=== PATIENT | female | born 1985 | race Caucasian/White ===

== ENCOUNTER 2016-08-12 19:05 | Emergency (ER) | payer OTHER ==
[2016-08-12 20:59] LABS: PH,URINE 6.5 (5.0-8.0); URINE BILIRUBIN NEGATIVE (NEGATIVE); URINE BLOOD NEGATIVE (NEGATIVE); URINE GLUCOSE (UA) NEGATIVE (NEGATIVE); URINE LEUKOCYTE ESTERASE 1+ (NEGATIVE); URINE NITRITE NEGATIVE (NEGATIVE); URINE PROTEIN NEGATIVE (NEGATIVE); URINE UROBILINOGEN NORMAL (0-1 mg/dl)
[2016-08-12 21:00] LABS: URINE APPEARANCE CLEAR; URINE COLOR YELLOW
[2016-08-12 21:09] LABS: URINE RBC 0 /hpf
[2016-08-12 21:10] LABS: URINE BACTERIA 2+
--- NOTE | 2016-08-12 22:27 | US ---
Name: MEME JONES Exam: Venous ultrasound right leg Comparison: None Clinical history: Right calf pain. 33 weeks . Findings:Deep veins of the right leg were evaluated with ultrasound using real-time, color flow doppler and doppler analysis. Deep veins are compressible. There is no echogenic intraluminal filling defect. Blood flow responds appropriately to respiratory variation and augmentation on color doppler and spectral analysis. There is no suspicious fluid collection or mass. Impression: No ultrasound evidence for DVT right leg Note: The above report was uploaded to [facility]'s electronic medical records system at 2221 hours.
[2016-08-12] MEDS ORDERED: ONDANSETRON 4 MG ODT TAB ONE (22:52)
== END 2016-08-12 23:02 | disposition home or self-care (01) ==
LOC: ED 19:05
DX: O14.93 Unspecified pre-eclampsia, third trimester (principal); M79.604 Pain in right leg; Z3A.33 33 weeks gestation of pregnancy
CPT/HCPCS: 81001; 99283 ×2; 93971; A9270